=== PATIENT | female | born 1955 | race African-American/Black ===

== ENCOUNTER 2020-03-08 04:22 | Emergency (ER) | payer OTHER, MEDICARE ==
[~2020-03-08] VITALS: Ht 157.5 cm; Wt 64.4 kg
[2020-03-08 04:34] VITALS: Ht 157.5 cm; Wt 64.4 kg
[2020-03-08 06:25] VITALS: BP 116/64
== END 2020-03-08 06:31 | disposition home or self-care (01) ==
LOC: ED 04:22
DX: J45.901 Unspecified asthma with (acute) exacerbation (principal); M32.9 Systemic lupus erythematosus, unspecified; M06.9 Rheumatoid arthritis, unspecified; Z88.1 Allergy status to other antibiotic agents
CPT/HCPCS: J1100; Q0092